=== PATIENT | female | born 1965 | race Caucasian/White ===

== ENCOUNTER 2024-11-14 08:12 | Day surgery (SDC) | payer MEDICAID ==
[2024-11-14] MEDS: Lactated Ringers 1,000 ML IV SCH (08:41)
[2024-11-14] MEDS ORDERED: Propofol 200 MG/20 ML SDV ONE ×2 (09:35)
[2024-11-14] MEDS ORDERED: Ondansetron 4 MG/2 ML SDV ONE (09:35)
[2024-11-14] MEDS ORDERED: Ketorolac 30 MG/ML SDV ONE (09:35)
[2024-11-14] MEDS ORDERED: Etomidate 2 MG/ML 10 ML SDV ONE (09:35)
[2024-11-14] MEDS ORDERED: fentaNYL 50 MCG/ML SDV ONE ×2 (09:35)
[2024-11-14] MEDS ORDERED: Midazolam 1 MG/ML 2 ML SDV ONE (09:35)
[2024-11-14] MEDS ORDERED: Dexamethasone 10 MG/ML SDV ONE (09:35)
[2024-11-14] MEDS ORDERED: Lidocaine 2% 20 ML MDV ONE (09:35)
[2024-11-14] MEDS ORDERED: Phenylephrine 1% 10 MG/ML SDV ONE (09:35)
[2024-11-14 15:10] VITALS: BP 137/60; PULSE 81
== END 2024-11-14 15:00 | disposition home or self-care (01) ==
LOC: CC.SDS 08:12
PROVIDERS: ATTEND Dentist General Practice
DX: K02.9 Dental caries, unspecified (principal); I10 Essential (primary) hypertension; E78.00 Pure hypercholesterolemia, unspecified; K21.9 Gastro-esophageal reflux disease without esophagitis; I25.10 Atherosclerotic heart disease of native coronary artery without angina pectoris; F32.A Depression, unspecified; Z79.899 Other long term (current) drug therapy
CPT/HCPCS: 00170; J1100; J1885; J2003; J2250; J2371; J2405; J2704; J3010; J3490; J7120